=== PATIENT | male | born 1985 | race Hispanic/Latino ===

== ENCOUNTER → 2017-12-30 | Outpatient (CLI) | payer BC ==
--- NOTE | 2017-12-30 09:53 | RAD ---
EXAM DESCRIPTION: Wrist,Left 3 Views CLINICAL HISTORY: 32 years, Male, LOCALIZED SWELLING, MASS AND LUMP, LEFT UPPER LIMB COMPARISON: None FINDINGS: Left wrist 3 x-ray views is negative for fracture or dislocation. Carpal relationships are well-maintained. Distal radius and ulna appear intact. Normal metacarpals. No soft tissue mass is seen. Small subchondral cysts in the distal radius and scaphoid and possibly in the ulna. IMPRESSION: Negative for fracture or dislocation. Electronically signed by: Tod Do MD 12/30/2017 9:52 AM CDT
== END ==
LOC: RAD 08:00
PROVIDERS: ATTEND Orthopaedic Surgery
DX: R22.32 Localized swelling, mass and lump, left upper limb (principal); Z01.818 Encounter for other preprocedural examination

== ENCOUNTER 2018-01-25 05:49 | Day surgery (SDC) | payer BC ==
--- NOTE | 2017-12-30 13:16 | HP ---
CHIEF COMPLAINT: Ganglion cyst on left wrist. HISTORY OF PRESENT ILLNESS: Mr. James is a 32-year-old male with a history of a mass on the dorsum of the left wrist. It is not related to any trauma, but does cause some discomfort. He states he has had 3 times where he has actually banged the cyst and ruptured it himself. It seems to continue to recur. He denies any neurologic symptoms associated with this. PAST SURGICAL HISTORY: None. MEDICATIONS: None. ALLERGIES: NO KNOWN DRUG ALLERGIES. CODE STATUS: Full code. IMMUNIZATIONS: Up to date. SOCIAL HISTORY: The patient does not drink, smoke or use any illicit drugs. FAMILY HISTORY: None pertinent to today's complaint. REVIEW OF SYSTEMS: Negative except as indicated in the History of Present Illness. PHYSICAL EXAMINATION: VITAL SIGNS: Blood pressure 136/95. Pulse 71. Height 5'4". Weight 160 pounds. MENTAL STATUS: The patient is awake, alert, and is able to give a good history and participate in the physical. The patient is oriented to person, place and time. SKIN: Normal tone and turgor. MUSCULOSKELETAL: The patient has about a 1.5 x 1 cm mass on the dorsum of the wrist. There is no crepitus, no erythema and it does not move with tendon excursion. The hand is warm and well perfused. He maintains full range of motion in the digits as well as the wrist. ASSESSMENT: 1. Ganglion cyst. PLAN: The plan at this point is for excision of the cyst. He has had three episodes where he has actually ruptured the cyst, however, it continues to occur. We have discussed the risks, benefits, and alternatives to that and the patient has given informed consent. #[id number] [facility]
--- NOTE | 2018-01-19 10:07 | HP ---
CHIEF COMPLAINT: Mass on the hand. HISTORY OF PRESENT ILLNESS: Mr. James is a 32-year-old male with a history of a mass on the dorsum of the hand. He has had no trauma related to this, denies any radiation of pain or neurologic symptoms. The mass has been aspirated, however, he has had a return. After discussing the risks, benefits and alternatives to excision of the mass, he has given informed consent. PAST SURGICAL HISTORY: None. MEDICATIONS: None. ALLERGIES: NO KNOWN DRUG ALLERGIES. CODE STATUS: Full code. IMMUNIZATIONS: Up to date. SOCIAL HISTORY: The patient does not drink, smoke or use any illicit drugs. FAMILY HISTORY: None pertinent to today's complaint. REVIEW OF SYSTEMS: Negative except as indicated in the History of Present Illness. PHYSICAL EXAMINATION: VITAL SIGNS: Blood pressure 126/81. Pulse 86. Height 5'2". Weight 157 pounds. MENTAL STATUS: The patient is awake, alert, and is able to give a good history and participate in the physical. The patient is oriented to person, place and time. SKIN: Normal tone and turgor. MUSCULOSKELETAL: The patient has about a 10 x 10 mm swelling on the dorsum of the hand just distal to the wrist at about the level of between the second and third metacarpals. There is no crepitus, no erythema, no increased warmth and it does not move with tendon excursion. It is compressible. ASSESSMENT: 1. Ganglion cyst. PLAN: The plan at this point is for excision of the cyst. We have discussed the risks, benefits, and alternatives to that and the patient has given informed consent. #[id number] [facility]
[2018-01-25] MEDS ORDERED: SODIUM CHL 0.9% 100ML MINI-BAG 100 ML IVPB ONE (06:06)
[2018-01-25] MEDS ORDERED: ceFAZolin SODIUM 1 GM VIAL ONE ×3 (06:06→08:20)
[2018-01-25] MEDS ORDERED: LACTATED RINGERS 1,000 ML ONE (06:06)
[2018-01-25] MEDS ORDERED: fentaNYL CITRATE INJ 50 MCG/ML AMP ONE (08:18)
[2018-01-25] MEDS ORDERED: MIDAZOLAM INJ 2 MG/2 ML VIAL ONE (08:18)
[2018-01-25] MEDS ORDERED: LIDOCAINE 1% 10 ML VIAL INJ ONE ×2 (08:19→10:00)
[2018-01-25] MEDS ORDERED: BUPIVACAINE 0.25% INJ 30 ML VIAL INJ ONE (08:19)
[2018-01-25] MEDS ORDERED: VANCOMYCIN HCL INJ 1,000 MG VIAL IVPB ONE (08:19)
--- NOTE | 2018-01-25 09:42 | OP ---
DATE OF PROCEDURE: 01/25/18 PREOPERATIVE DIAGNOSIS: 1. Ganglion cyst, left wrist. POSTOPERATIVE DIAGNOSIS: 1. Ganglion cyst, left wrist. PROCEDURE: 1. Excision of cyst. SURGEON: Daniel Chavarria MD. [employer]: Bry Cedeño CST, SA-C. ANESTHESIA: Local with sedation. COMPLICATIONS: None. FINDINGS: Cyst arising from the carpometacarpal joint overlying the second and third interspace. INDICATION: Mauri has a history of a cyst that has fluctuated in size. He has had several times popped the cyst himself, however, this time he is requesting excision of the cyst. We discussed the risks, benefits and alternatives to that in addition to the fact that there may be a recurrence of the cyst. After discussing the risks, benefits and alternatives, he gave informed consent for excision. PROCEDURE: The patient was brought to the Operating Room and placed in supine position. Sedation was administered and local anesthetic was injected in the operative area. The arm was sterilely prepped and draped. Following prepping and draping, an incision was made directly overlying the cyst. Blunt dissection was carried down to the base of the cyst which was identified and transected. The base was cauterized and the wound was very thoroughly irrigated. Following irrigation, the wound was reapproximated with Nylon sutures. Sterile dressings were placed. The patient was then taken back to the Day Surgery Unit. POSTOPERATIVE INSTRUCTIONS: He has been encouraged to range of motion with the digit and return to see us in 2 days. #[id number] [facility]
[2018-01-25] MEDS ORDERED: HYDROcodone 5MG/APAP 325MG 1 EA TAB ONE (09:53)
[2018-01-25] MEDS ORDERED: PROPOFOL 200 MG/20 ML VIAL IV ONE (10:00)
[2018-01-25 11:22] VITALS: BP 136/92; TEMP 97.2; O2SAT 100
== END 2018-01-25 10:45 | disposition home or self-care (01) ==
LOC: AMB 05:49
PROVIDERS: ATTEND Orthopaedic Surgery
DX: M67.432 Ganglion, left wrist (principal)
CPT/HCPCS: 01810; 25111; 36415; 80048; 85025; J0690; J2250; J3010; J3370; J3490; J7050; J7120